=== PATIENT | female | born 1985 | race Caucasian/White ===

== ENCOUNTER 2017-09-06 13:58 | Emergency (ER) | payer OTHER ==
[~2017-09-06] VITALS: Ht 162.6 cm; Wt 49.9 kg
[~2017-09-06 13:58] MED LIST: BUPR1 PO; BUPRENORPHINE HC8 MG PO; BUPRENORPHINE HC8 MG SL; CEPH500 PO; CYCL10 PO; FAMO20 PO; HYDACE5 PO; IBUP400 PO; IBUP800 PO; META800 PO; METO10 PO; METO5A PO; MULVITMINE PO; ONDA4 PO; OXYACE5T PO; PROM25 PO; PROM25S PR; PROM50S PR; [UNRECOGNIZED DRUG - REMARK]
== END 2017-09-06 16:00 | disposition home or self-care (01) ==
LOC: ER 13:58
DX: R21 Rash and other nonspecific skin eruption (principal); T78.40XA Allergy, unspecified, initial encounter; Z87.891 Personal history of nicotine dependence; Z88.2 Allergy status to sulfonamides; Z88.8 Allergy status to other drugs, medicaments and biological substances; Z79.899 Other long term (current) drug therapy
CPT/HCPCS: 99282; Q0163

== ENCOUNTER → 2018-06-29 | Outpatient (CLI) | payer OTHER ==
[2018-07-02 03:12] LABS: CHLAMYDIA TRACHOMATIS, NAA Negative (Negative); NEISSERIA GONORRHOEAE, NAA Negative (Negative)
[2018-07-02 12:07] LABS: HPV 16 Negative (Negative); HPV 18 Negative (Negative); HPV OTHER HR TYPES Negative (Negative)
== END | disposition home or self-care (01) ==
LOC: LAB 16:58 → LAB SHORT 16:58
PROVIDERS: Obstetrics & Gynecology
DX: Z36.89 Encounter for other specified antenatal screening (principal)
CPT/HCPCS: 87491; 87591; 87624; G0123

== ENCOUNTER → 2018-11-30 | Outpatient (CLI) | payer OTHER ==
[~2018-11-30] MED LIST changes: +BUPRENORPHINE HC2 MG SL; +Verotin-Gr Cap1 EACH PO
== END | disposition home or self-care (01) ==
LOC: LAB 09:06 → LAB SHORT 09:06
DX: Z34.80 Encounter for supervision of other normal pregnancy, unspecified trimester (principal)
CPT/HCPCS: 87081; 87653

== ENCOUNTER 2019-01-10 10:53 | Inpatient (IN) | payer OTHER ==
[~2019-01-10] VITALS: Ht 162.6 cm; Wt 58.5 kg
[~2019-01-10 10:53] MED LIST changes: -BUPRENORPHINE HC2 MG SL
[2019-01-10 12:32] LABS: BASOPHILS ABSOLUTE AUTO 0.02 K/mm3 (0.00-0.23); BASOPHILS PERCENT AUTO 0 % (0-2); EOSINOPHILS ABSOLUTE AUTO 0.17 K/mm3 (0.00-0.68); EOSINOPHILS PERCENT AUTO 2 % (0-6); Hematocrit 35.1 % (33.0-51.0); Hemoglobin 11.4 g/dL (11.5-16.0); IMMATURE GRAN ABSOLUTE AUTO 0.03 K/mm3 (0.00-0.10); IMMATURE GRAN PERCENT AUTO 0 % (0-1); LYMPHOCYTES ABSOLUTE AUTO 0.97 K/mm3 (0.84-5.20); LYMPHOCYTES PERCENT AUTO 11 % (21-46); MONOCYTES ABSOLUTE AUTO 0.66 K/mm3 (0.16-1.47); MONOCYTES PERCENT AUTO 8 % (4-13); Mean Corpuscular HGB 30.4 pg (26.0-34.0); Mean Corpuscular HGB Conc 32.5 g/dL (31.5-36.5); Mean Corpuscular Volume 94 fL (80-100); Mean Platelet Volume 11.6 fL (9.1-12.4); NEUTROPHILS ABSOLUTE AUTO 6.86 K/mm3 (1.96-9.15); NEUTROPHILS PERCENT AUTO 79 % (41-73); Platelet Count 185 K/mm3 (150-400); RDW Coefficient Variation 13.9 % (11.7-14.2); RDW Standard Deviation 47.6 fL (35.1-46.3); Red Blood Cell Count 3.75 M/mm3 (3.80-5.20); White Blood Cell Count 8.71 K/mm3 (4.00-11.30)
[2019-01-10] MEDS ORDERED: BUPRENORPHINE HC2 MG SL (12:32)
[2019-01-10 16:14] LABS: U Amphetamine Screen Not Detected; U Barbituate Screen Not Detected; U Benzodiazapine Screen Not Detected; U Buprenorphine Screen DETECTED; U Cannabinoids Screen Not Detected; U Cocaine Screen Not Detected; U Methadone Screen Not Detected; U Methamphetamine Screen Not Detected; U Opiates Screen Not Detected; U Oxycodone Screen Not Detected; U Phencyclidine Screen Not Detected; U Propoxyphene Screen Not Detected
[2019-01-11 05:44] LABS: Hematocrit 30.3 % (33.0-51.0); Hemoglobin 9.8 g/dL (11.5-16.0); Mean Corpuscular HGB 30.2 pg (26.0-34.0); Mean Corpuscular HGB Conc 32.3 g/dL (31.5-36.5); Mean Corpuscular Volume 93 fL (80-100); Mean Platelet Volume 11.9 fL (9.1-12.4); Platelet Count 175 K/mm3 (150-400); RDW Coefficient Variation 13.7 % (11.7-14.2); RDW Standard Deviation 46.8 fL (35.1-46.3); Red Blood Cell Count 3.25 M/mm3 (3.80-5.20); White Blood Cell Count 12.29 K/mm3 (4.00-11.30)
--- NOTE | 2019-01-11 07:23 | NUR ---
01-11-[address] DELATORRE RE: PT BLEEDING, GAVE HER SPECIFIC AMOUNTS THAT WERE WEIGHED, AND GRADUAL DECREASE: 2150 [id number], 2340 142CC, 0100 37CC, ORDERS GIVEN TO CONTINUE IN NS WITH PITOCIN AT RATE OF 200CC/HR UNTIL BAG FINISHED, NO NEED FOR #2 IV OR OTHER INTERVENTIONS AT THIS TIME LONG BLEEDING AMOUNTS CONTINUE TO DECREASE AND PT REMAINS ASYMPTOMATIC, AND TO CALL HER IF CONDITION CHANGES OR PT STATUS CHANGES
--- NOTE | 2019-01-11 08:10 | NUR ---
Pt sleeping soundly, SO rocking sleeping NB. Will call when pt awake.
--- NOTE | 2019-01-11 12:44 | NUR ---
Pt holding sleeping nb. Denies needs at this time.
--- NOTE | 2019-01-11 17:05 | NUR ---
Pt resting in bed, holding sleeping nb. Denies needs at this time.
[2019-01-12] MEDS ORDERED: IBUP800 PO (11:06)
--- NOTE | 2019-01-12 17:45 | NUR ---
PT TEARFUL, FOB HAS CALLED AND CONFUSED ABOUT COMING IN TO SIGN PATERNITY PAPERS, AND THE PT IS TEARFUL WITH HIS PHONE CALLS,TRYING NOT TO DISCHARGE PT UNTIL THEY ARE DONE. ONCE PT IS DISCHARGED SHE HAS TO GO TO ANOTHER PLACE TO GET THEM DONE WITHIN A CERTAIN AMOUNT OF TIME, THIS WAS EXPLAINED TO THE PT AND THE FOB ON THE PHONE. TALKED TO HER ABOUT IF HE DOESNT COME IN, ITS OK THEY CAN DO THEM LATER, IT JUST MIGHT COST A LITTLE FOR HIM TO BE ADDED OR MAYBE THEY CAN DO IT WITH IN THE 5-7DAY WINDOW. PT IS STILL A LITTLE TEARFUL
--- NOTE | 2019-01-12 20:16 | NUR ---
PATIENT DISCHARGED TO [facility]ARD[facility] STATUS AT 2016
== END 2019-01-12 21:00 | disposition home or self-care (01) | DRG 806 ==
LOC: OBS 10:53 → BC 11:05
PROVIDERS: ADMIT Obstetrics & Gynecology
PROC: 10E0XZZ Delivery of Products of Conception, External Approach (ICD-10-PCS; principal; 2019-01-10)
PROC: 0UQG7ZZ Repair Vagina, Via Natural or Artificial Opening (ICD-10-PCS; 2019-01-10)
PROC: 3E0R3BZ Introduction of Anesthetic Agent into Spinal Canal, Percutaneous Approach (ICD-10-PCS; 2019-01-10)
DX: O48.0 Post-term pregnancy (principal); O71.4 Obstetric high vaginal laceration alone; Z37.0 Single live birth; O99.324 Drug use complicating childbirth; Z3A.41 41 weeks gestation of pregnancy; O34.211 Maternal care for low transverse scar from previous cesarean delivery; O69.81X0 Labor and delivery complicated by cord around neck, without compression, not applicable or unspecified; Z88.2 Allergy status to sulfonamides; O99.334 Smoking (tobacco) complicating childbirth; F17.200 Nicotine dependence, unspecified, uncomplicated; F11.90 Opioid use, unspecified, uncomplicated
CPT/HCPCS: 36415; 51702; 59025; 85025; 85027; G0480; J1885; J2001; J2210; J2405; J2590; J3010; J7120